=== PATIENT | male | born 1955 | race Caucasian/White ===

== ENCOUNTER 2019-04-23 10:46 | Outpatient (CLI) | payer BC ==
[~2019-04-23] VITALS: Ht 180.3 cm; Wt 91.4 kg
[~2019-04-23 10:46] MED LIST: AMLO1CAP5 PO; PROP80TA3 PO
== END 2019-04-23 11:13 | disposition home or self-care (01) ==
LOC: PREOP 10:46
PROVIDERS: ATTEND Internal Medicine
DX: Z01.818 Encounter for other preprocedural examination (principal)

== ENCOUNTER 2019-04-25 07:26 | Day surgery (SDC) | payer BC ==
--- NOTE | 2019-04-13 08:42 | HISTORY AND PHYSICAL ---
DATE OF SERVICE: COLONOSCOPY HISTORY AND PHYSICAL DATE OF ADMISSION: 04/25/2019 HISTORY OF PRESENT ILLNESS: The patient is a 63-year-old white male seen for yearly wellness evaluation on 04/03. He is being subsequently set up for screening colonoscopy. He does report one uncle who was diagnosed with colon cancer in his 60s. He is not aware of any other family history for colon cancer. He will occasionally have some bowel urgency, but has not noted any blood in his stool either melena or bright red blood per rectum. He denies any abdominal pain. He is active as a marquez. PAST MEDICAL HISTORY: Significant for hypertension. MEDICATIONS: Include propranolol LA 80 mg daily and Lotrel 20/5 at bedtime. He takes no aspirin or nonsteroidal medication. SOCIAL HISTORY: He is employed as a [employer], , with no past smoking history and occasional small volume alcohol intake. UPDATED FAMILY HISTORY: Father is still living at age 85, has a history of hypertension and skin cancer. Mother of complications of ALS at the age of 73, had one grandfather diagnosed with lung cancer in his 70s and was a smoker. Another grandfather had lymphoma in his 60s or 70s. He has 2 sisters and one brother that are alive and well, living in their late 50s and the early 60s. PHYSICAL EXAMINATION: GENERAL: Reveals a well-appearing white male in no acute distress. VITAL SIGNS: Weight was up 12 pounds from 6 months ago to 201, blood pressure 158/82 at beginning of the interview, 150/80 at the end. HEENT: Unremarkable. Mallampati 1 pharyngeal configuration. NECK: Revealed no JVD, adenopathy or bruits. CHEST: Clear to auscultation. CARDIOVASCULAR: Reveals regular rate and rhythm without murmur, S3 or S4. ABDOMEN: Soft, supple without mass, organomegaly or tenderness. No evidence for distention is noted. No evidence for abdominal aortic aneurysm is noted to palpation. No bruits are appreciated. Bowel sounds are positive in all 4 quadrants. EXTREMITIES: Reveal no cyanosis, clubbing or edema. SKIN: Evaluation reveals no suspicious nevi. ASSESSMENT AND PLAN: 1. Hypertension, not under ideal control, likely aggravated by weight gain. Discussed the importance of portion control, cutting back on salt intake and we will increase Lotrel to 20/10 with his next prescription. 2. The patient was set up for screening colonoscopy. One uncle reportedly was diagnosed with colon cancer in his 60s. He is not aware of any other family history for colon cancer or colon polyps. We will have the patient follow up in 6 months. Job ID: [id number] DocumentID: [id number] Dictated Date: 04/04/2019 11:46:42 Roller Repairer Date: 04/04/2019 12:37:57 Dictated By: MARIA ISABEL GOODWIN MD
[2019-04-25] VITALS (13 sets, daily range): BP systolic 131–193; BP diastolic 63–102
[~2019-04-25 07:26] MED LIST changes: +D5 LR IV SOLUTION 1,000 ML IV ONE
[2019-04-25] MEDS ORDERED: D5 LR IV SOLUTION 1,000 ML IV STA (07:51)
[2019-04-25] MEDS ORDERED: MIDAZOLAM 5 MG/5 ML (VERSED) VIAL ONE (07:59)
[2019-04-25] MEDS ORDERED: fentaNYL INJECTION 100 MCG/2 ML AMP IVP ONE (08:00)
[2019-04-25] MEDS ORDERED: MIDAZOLAM 5 MG/5 ML (VERSED) VIAL IV PRN (08:00)
[2019-04-25] MEDS ORDERED: LIDOCAINE JELLY 2% 6 ML SYRINGE ONE (08:00)
[2019-04-25] MEDS ORDERED: LIDOCAINE JELLY 2% 6 ML SYRINGE MM PRN (08:00)
[2019-04-25] MEDS ORDERED: fentaNYL INJECTION 100 MCG/2 ML AMP ONE (08:00)
--- NOTE | 2019-04-25 12:00 | Pre-Op Note & Conscious Sedat ---
Pre-Operative Progress Note H&P Reviewed The H&P was reviewed, patient examined and no changes noted. Date H&P Reviewed: Apr 25, 2019 Time H&P Reviewed: 07:30 Conscious Sedation Pre-Proced ASA Score 2 For ASA 3 and 4: Consider anesthesia and medical clearance. Also, for patients with a history of failed moderate sedation consider anesthesia. Airway Lungs Heart ASA score ASA 1: a normal healthy patient ASA 2: a patient with a mild systemic disease (mid diabetes, controlled hypertension, obesity ASA 3: a patient with a severe systemic disease that limits activity (angina, COPD, prior Myocardial infarction) ASA 4: a patient with an incapacitating disease that is a constant threat to life (CHF, renal failure) ASA 5: a moribund patient not expected to survive 24 hrs. (ruptured aneurysm) ASA 6: a declared brain- patient whose organs are being harvested. For emergent operations, add the letter E after the classification Mallampati Classification Grade 2 Sedation Plan Analgesia, Amnesia, Plan communicated to team members, Discussed options with patient/fam, Discussed risks with patient/fam The patient is an appropriate candidate to undergo the planned procedure, sedation, and anesthesia. The patient immediately re-assessed prior to indication. MARIA ISABEL GOODWIN MD Apr 25, 2019 12:00
--- NOTE | 2019-04-25 16:54 | OPERATIVE REPORT ---
DATE OF SERVICE: COLONOSCOPY SUMMARY INDICATION FOR THE PROCEDURE: Screening colonoscopy. DESCRIPTION OF PROCEDURE: The patient was placed in the left lateral decubitus position. Prior to undergoing colonoscopy, digital rectal evaluation was performed. Anal sphincter tone was normal and the perianal reflexes intact. No abnormalities were noted to digital inspection of anal canal or distal rectal vault. Prostate is unremarkable to digital inspection. No nodularity or tenderness was noted. No abnormalities were noted on digital inspection of the distal rectal vault or anal canal. The colonoscope was then inserted into the rectum and under direct visualization advanced to the cecum. The cecum was identified by identification of the ileocecal valve and cecal strap. Photographic documentation was obtained. Careful inspection was made as the colonoscope was withdrawn. The patient tolerated the procedure well. The quality of the prep was good. FINDINGS: There was no evidence for internal or external hemorrhoids and the rectum was unremarkable. Several small sigmoid diverticulum were present without evidence for diverticulitis. No other sigmoid colonic abnormalities were appreciated. The descending colon, splenic flexure, transverse colon, hepatic flexure, ascending colon and cecum were unremarkable. ASSESSMENT: Mild diverticular disease confined to the sigmoid colon was present with no evidence for neoplasia. The patient does have two second degree relatives with diagnosis of colon cancer. We will likely advocate repeat screening colonoscopy in 5 to 10-year interval. I am his primary care provider. Job ID: [id number] DocumentID: [id number] Dictated Date: 04/25/2019 12:08:44 Custodial Foreman Date: 04/25/2019 16:53:42 Dictated By: MARIA ISABEL GOODWIN MD
== END 2019-04-25 10:00 | disposition home or self-care (01) ==
LOC: ENDO 07:26
PROVIDERS: ATTEND Internal Medicine
DX: Z12.11 Encounter for screening for malignant neoplasm of colon (principal); K57.30 Diverticulosis of large intestine without perforation or abscess without bleeding; I10 Essential (primary) hypertension; Z79.899 Other long term (current) drug therapy; Z80.8 Family history of malignant neoplasm of other organs or systems; Z80.1 Family history of malignant neoplasm of trachea, bronchus and lung; Z80.7 Family history of other malignant neoplasms of lymphoid, hematopoietic and related tissues

== ENCOUNTER → 2022-03-13 | Outpatient (CLI) | payer SELFPAY ==
[~2022-03-13] MED LIST changes: -D5 LR IV SOLUTION 1,000 ML IV ONE
--- NOTE | 2022-03-13 13:25 | Diagnostic Imaging Report ---
CT CARDIAC CALCIUM SCORE INDICATION: Risk stratification for coronary artery disease. COMPARISON: None available. TECHNIQUE: Limited noncontrast CT of the chest was performed for purposes of coronary artery calcium scoring. Up-to-date equipment and protocols were utilized for dose optimization. FINDINGS: The total coronary artery calcium score is 74.4. Coronary artery calcium is present in the left main, left anterior descending, and right coronary arteries. This places the patient in the 69th percentile for sex, age, and ethnicity. Visualized aspects of the non-coronary portions of the examination show no incidental abnormality that would require further workup. IMPRESSION: 1. Total coronary artery calcium score is 74. Dictated by: Dictated on workstation # [id number]
== END ==
LOC: RAD 08:55
PROVIDERS: ATTEND Internal Medicine
DX: I25.10 Atherosclerotic heart disease of native coronary artery without angina pectoris (principal)
CPT/HCPCS: 75571